=== PATIENT | male | born 1970 | race Caucasian/White ===

== ENCOUNTER 2018-02-09 00:08 | Day surgery (SDC) | payer OTHER ==
[~2018-02-09 00:08] MED LIST: AMPDEX10CR PO; AZEL137S NS; CEPH500 PO; DESL5 PO; ESCI10 PO; OXYACE5T PO
[2018-02-09] MEDS ORDERED: THYR60 PO (11:28)
[2018-02-09] MEDS ORDERED: NAPR220 PO (11:29)
[2018-02-09] MEDS ORDERED: Hair, Skin & N1 EACH PO (11:29)
[2018-02-09] MEDS ORDERED: MSM500 MG PO (11:29)
[2018-02-09] MEDS ORDERED: CHOL10002 PO (11:30)
[2018-02-09] MEDS ORDERED: CLOB.05TO TOP (11:31)
[2018-02-09] MEDS ORDERED: FISH OIL 1,2001 EAC1 PO (11:32)
[2018-02-09] MEDS ORDERED: DESO.05TL TOP (11:32)
[2018-02-09] MEDS ORDERED: ALBU90OI INH (11:33)
[2018-02-09] MEDS ORDERED: ACIDOPHILUS1 EAC1 PO (11:33)
[2018-02-09] MEDS ORDERED: ACET325 PO (11:34)
[2018-02-09] MEDS ORDERED: MINO50 PO (11:35)
== END 2018-02-09 09:44 | disposition home or self-care (01) ==
LOC: ATC 00:08
DX: R53.83 Other fatigue (principal); I95.0 Idiopathic hypotension; F32.9 Major depressive disorder, single episode, unspecified; M79.1 Myalgia
CPT/HCPCS: 36415; 80400; 82533; 84305; 96372; J0834